=== PATIENT | female | born 1960 | race Caucasian/White ===

== ENCOUNTER 2022-09-08 08:41 | Day surgery (SDC) | payer BC ==
[2022-09-04 09:40] LABS: Absolute Lymphocytes (CBC) 1.6 K/uL (0.7-4.9); Hematocrit 40.6 % (36.0-45.0); Lymphocytes % 14.9 % (15.3-44.8); MCV 93.6 fL (80-100); MPV 6.7 fL (7.6-11.3); RBC Red Blood Cell Count 4.34 M/uL (3.86-4.86)
--- NOTE | 2022-09-04 09:47 | RAD REPORT ---
EXAM DESCRIPTION: RAD - Chest Pa And Lat (2 Views) - 09/04/2022 9:31 am CLINICAL HISTORY: Pre op pending carpal tunnel release COMPARISON: ABDOMEN 1 VIEW KUB dated 08/18/2014; CHEST SINGLE VIEW dated 07/25/2014; ABDOMEN 1 VIEW KU B dated 07/08/2014; ABDOMEN 1 VIEW KUB dated 04/17/2014 FINDINGS: Lines: None. Lungs: No evidence of edema or pneumonia. Calcified nodule right mid lung. Pleural: No significant pleural effusions or pneumothorax. Cardiac: The heart size is within normal limits. Mediastinum: Within normal limits. Bones: No acute fractures. Fusion hardware in the lumbar spine. Other: None IMPRESSION: No acute cardiopulmonary disease.
[2022-09-04 09:56] LABS: Potassium 3.5 mEq/L (3.5-5.1)
[2022-09-04 09:59] LABS: Protime INR 0.96
--- NOTE | 2022-09-04 12:37 | EKG ---
Test Date: 2022-09-04 Test Time: 09:13:06 Tool Room Gear Machine Operator: NINO MEASUREMENT RESULTS: Intervals: Rate: 89 CO: 140 QRSD: 84 QT: 352 QTc: 428 [place]: P: 66 CO: 140 QRS: 122 T: 27 INTERPRETIVE STATEMENTS: Normal sinus rhythm Right axis deviation Low voltage QRS Abnormal ECG Compared to ECG 07/25/2014 19:02:23 Low QRS voltage now present Sinus bradycardia no longer present Short CO interval no longer present T-wave abnormality no longer present Possible ischemia no longer present Electronically Signed On 09-04-22 12:36:58 CDT by [place] Faith
[2022-09-08] MEDS ORDERED: LIDOCAINE 1% MPF 5 ML VIAL ONE (08:50)
[2022-09-08] MEDS ORDERED: FENTANYL CITR 100 MCG/2 ML ONE ×2 (08:50→11:21)
[2022-09-08] MEDS ORDERED: EPINEPHRINE/PF 1 MG/ML AMP ONE (08:51)
[2022-09-08] MEDS ORDERED: MIDAZOLAM HCL 2 MG/2 ML INJ ONE ×2 (08:51→11:21)
[2022-09-08] MEDS ORDERED: Ringers Lactate 1,000 ML IV ONE (08:52)
[2022-09-08] MEDS ORDERED: CEFAZOLIN SODIUM 1 GM/VIAL ONE (08:52)
[2022-09-08] MEDS ORDERED: CEFAZOLIN SODIUM 2 GM/VIAL ONE (09:01)
[2022-09-08] MEDS ORDERED: BUPIVACAINE 0.25% PF 10 ML VIAL ONE (09:32)
[2022-09-08] MEDS ORDERED: NS 0.9% VIAL 30 ML ONE (11:21)
[2022-09-08] MEDS ORDERED: LIDOCAINE 2% MPF 5 ML VIAL ONE (11:22)
[2022-09-08] MEDS ORDERED: LIDOCAINE 1% MPF 30 ML VIAL ONE (11:22)
[2022-09-08] MEDS ORDERED: propofoL 1,000 MG/100 ML VIAL IV ONE (11:33)
--- NOTE | 2022-09-08 13:07 | P.BOP ---
Preoperative diagnosis: right carpal tunnel release Postoperative diagnosis: same Primary procedure: right open carpal tunnel release Research Microbiologist: NONE,NONE Estimated blood loss: 2 cc Specimen: none Findings: see dictation Anesthesia: General Complications: None Implants: none Fluids & blood products: per anesthesia record Transferred to: Recovery Room Condition: Good
[2022-09-08 14:07] VITALS: BP 104/67; TEMP 97; O2SAT 97
--- NOTE | 2022-09-11 16:17 | P.OP ---
Preoperative diagnosis: right carpal tunnel syndrome Postoperative diagnosis: same Primary procedure: right open carpal tunnel release Anesthesia: Otto block Estimated blood loss: 2 cc Specimen: none Findings: see dictation Operative Technique: Reason for Surgery: The patient had physical exam findings as well as EMG findings consistent with carpal tunnel syndrome. I discussed with the patient at length risks and benefits associated with the procedure. She expressed understanding and elected proceed with operative treatment. Description of Procedure: After informed consent was obtained the patient was identified in the preoperative holding area. The right upper extremity was marked patient. Patient then brought back to the operating room transferred the operative table in supine fashion and placed under [place] block anesthesia. The right upper extremities and prepped and draped in usual sterile fashion. A timeout was initiated then correct patient procedure were confirmed and identified. The patient did receive a preoperative prophylactic antibiotics. Approximately a 3 cm longitudinal incision was made just ulnar to the thenar crease. Dissection was then taken down to the palmar fascia which was identified. A [place]untura elevator was then placed just deep to the palmar fascia to protect the median nerve at all times. A 15 blade was then used to release the palmar fascia and transverse carpal ligament leaving the Juntura elevator to protect the nerve at all times. Any remaining fascial bands were then released using a blunt tip Metzenbaum scissor. The tips were him superficially to protect the median nerve at all times. The wound was then irrigated thoroughly with normal saline. The skin was approximated using a 5-0 Prolene. Sterile dressings were applied and patient was awakened and transferred to PACU in stable condition. Postoperative plan: The patient will follow-up in 1 to 2 weeks for wound check and suture removal. She may begin to work on range of motion exercises at this time. Complications: None Implants: none Fluids & blood products: per anesthesia record Transferred to: Recovery Room Condition: Good
== END 2022-09-08 14:11 | disposition home or self-care (01) ==
LOC: OR 08:41
PROVIDERS: ATTEND Orthopaedic Surgery Sports Medicine
PROC: 01N50ZZ Release Median Nerve, Open Approach (ICD-10-PCS; principal; 2022-09-08 13:45)
DX: G56.01 Carpal tunnel syndrome, right upper limb (principal); M25.531 Pain in right wrist
CPT/HCPCS: 93005; 85025; 80048; 36415; 85610; 85730; 71046; 64721; J2704; A4216; J2001 ×2; J2250; J3010; J2800; J7120; J0171; J0690